=== PATIENT | male | born 1990 | race Caucasian/White ===

== ENCOUNTER 2025-05-04 12:11 | Emergency (ER) | payer BC, SELFPAY ==
--- NOTE | 2025-05-04 12:26 | ED_ITS ---
HPI - URI/Sore Throat General Chief Complaint: Upper Respiratory Infection Stated Complaint: Poss Sinus Problem Time Seen by Provider: 05/04/25 12:30 Source: patient Mode of arrival: ambulatory Limitations: no limitations History of Present Illness HPI Narrative: Thaddeus is a 34-year-old male patient presenting to the clinic today with complaints of possible sinus infection. He reports he has been dealing with sinus pressure and headaches for the past 2 weeks. Has been having some green nasal drainage but that has somewhat cleared up. Denies any known fevers, chills, body aches. States he has pressure over the right frontal sinus and behind his right eye. Pain is worse with bending forward or changing positions. Denies any dizziness, chest pain, shortness of breath. Has been using steam showers to help alleviate his symptoms. Has not been taking any medications. Related Data Allergies Allergy/AdvReac Type Severity Reaction Status Date / Time No Known Allergies Allergy Verified 05/04/25 12:22 Review of Systems Review of Systems: Pertinent positives per HPI. Patient denies any fever, chills, rash, visual changes, dizziness, cough, shortness of breath, chest pain, palpitations, nausea, vomiting, diarrhea, constipation, abdominal pain, or any urinary issues. PMFSH Comments At the time of my signature, I reviewed and agree with the nursing past medical, surgical, social, and family history. There is no relevant family history pertinent to the patient complaint. Exam Narrative: General: Well-developed, well nourished, in no apparent distress Head: Normocephalic, atraumatic Eyes: Pupils equally round and reactive to light bilaterally, EOM intact, sclera and conjunctive clear, no discharge, lids normal Ears: TMs intact and congested, ear canals clear, no drainage, grossly hearing normal. Nose: Nares patent, green nasal discharge, monitor inflammation, right-sided maxillary and frontal sinus tenderness. Mouth: Oral pharynx red without lesions or masses, good dentition, MMM. Postnasal drip Neck: Supple, trachea midline, no enlargement of anterior or posterior cervical nodes, no thyroid masses or goiter palpable. Cardio: Regular rate and rhythm, s1 and s2 normal, no murmur appreciated. Resp: Clear to auscultation bilaterally, no rhonchi, rales, wheezing or rubs Course Course Level of Care: Express Care Visit Vital Signs Vital signs: Vital Signs Temperature 36.9 C 05/04/25 12:27 Pulse Rate 67 05/04/25 12:27 Respiratory Rate 16 05/04/25 12:27 Blood Pressure 135/91 H 05/04/25 12:27 Pulse Oximetry 100 05/04/25 12:27 Oxygen Delivery Room Air 05/04/25 12:27 Temperature 36.9 C 05/04/25 12:27 Pulse Rate 67 05/04/25 12:27 Respiratory Rate 16 05/04/25 12:27 Blood Pressure 135/91 H 05/04/25 12:27 Pulse Oximetry 100 05/04/25 12:27 Oxygen Delivery Room Air 05/04/25 12:27 MDM MDM Narrative Medical decision making narrative: At the time of visit patient is resting comfortably on the exam table. Patient appears to be nontoxic. Complaints of possible sinus infection. He reports he has been dealing with sinus pressure and headaches for the past 2 weeks. Has been having some green nasal drainage but that has somewhat cleared up. Denies any known fevers, chills, body aches. States he has pressure over the right frontal sinus and behind his right eye. Pain is worse with bending forward or changing positions. Denies any dizziness, chest pain, shortness of breath. Has been using steam showers to help alleviate his symptoms. Has not been taking any medications. On exam patient has well TMs intact and congested, green nasal drainage, moderate anterior turbinate inflammation, maxillary and frontal sinus pressure on the right side, oropharynx mildly red with postnasal drip, heart rates regular rate and rhythm, lung sounds are clear. Plan: I suspect patient has sinusitis. Prescription for Augmentin and prednisone was sent to the pharmacy. Supportive measures were discussed with the patient and they voiced understanding discharge instructions and agrees to treatment plan. Return precautions reviewed Differential Diagnosis Differential Diagnosis: Differential diagnostic considerations for upper respiratory infection include upper respiratory infection, croup, otitis media, sinusitis, viral infection, bronchitis, influenza, pharyngitis, strep, uvulitis. Discharge Plan Discharge Clinical Impression: Sinusitis Qualifiers: Sinusitis location: frontal Chronicity: acute Recurrence: non-recurrent Qualified Code(s): J01.10 - Acute frontal sinusitis, unspecified Patient Disposition: Home Condition: Stable Instructions: Antibiotic Form, Sinusitis (ED) Additional Instructions: Take prescription medications only as prescribed-prednisone and Augmentin Increase fluids and stay well hydrated May take Tylenol or motrin as directed on bottle for pain/fever May use Flonase 1 spray in each nare daily May take OTC antihistamines such as Zyrtec or Claritin daily as directed on bottle May apply Vicks vapor rub to chest to open sinuses Sinus rinses for congestion Cepacol spray, cough drops, throat lozenges, warm tea with honey/lemon, gargle salt water to soothe throat BRAT diet for diarrhea Clear liquids x 24 hours then advance as tolerated for nausea/vomiting Go to the ED if you develop a worsening in your condition- high fever not controlled by Tylenol or Motrin, dehydration, weakness, lethargy, shortness of breath, or chest pain. Follow up with your PCP in 3-5 days if symptoms persist. Patient Language: Greenlandic Prescriptions: New prednisone 20 mg tablet 40 mg PO DAILY 5 Days Qty: 10 0RF amoxicillin-pot clavulanate 875-125 mg tablet 1 tablet PO Q12H 7 Days Qty: 14 0RF Follow-up/Referrals: UNKNOWN,DOCTOR [Primary Care Provider] Time of Disposition: 12:27 Quality NIHSS Nursing Documentation ED NIHSS nursing documentation: reviewed/agree
[2025-05-04 12:27] VITALS: BP 135/91; PULSE 67; RESP 16; TEMP 36.9; O2SAT 100
--- OUTSIDE RECORDS SUMMARY | 2025-05-04 13:47 | XMS_ITS | Clinical Summary ---
Author Organization [facility] Address [address] [place] [address] Care Team Providers Care Chemical Mixer Name Role Phone John Dan MD Primary Care Provider [phone] Allergies No known active allergies Medications ibuprofen (ADVIL,MOTRIN) 400 mg tablet Take 1 tablet (400 mg total) by mouth every 6 (six) hours as needed for pain. 0 02/21/2018 Active fexofenadine HCl (ELMA ORAL) Take by mouth Active Active Problems Problem Noted Date Diagnosed Date Class 1 obesity due to exces s calories without serious comorbidity with body mass index (BMI) of 30.0 to 30.9 in adult 01/24/2021 Assessment & Plan (01/24/2021 2:22 PM CDT): Stable, well controlled; patient has been working on weight loss through exercise and making dietary changes Has recently changed his diet to months ago Continue to monitor weight and encourage regular activity and exercise Closed fracture of left ankle with routine heali ng 02/21/2018 Elevated blood pressure reading 02/21/2018 Non-seasonal allergic rhinitis 02/21/2018 Tobacco abuse 10/06/2017 Assessment & Plan (01/24/2021 2:22 PM CDT): Has transition from tobacco to using nicotine gum for cravings Encouraged patient to work towards complete cessation of use of nicotine Migraine without aura and wi thout status migrainosus, not intractable 10/06/2017 Assessment & Plan (01/24/2021 2:21 PM CDT): Migraine versus cluster headaches Well controlled with magnesium supplement; patient continue using magnesium; cluster headaches return, will discuss other medical therapies at that time Deviated nasal septum 07/19/2015 Overview (08/18/2016): Deviated septum Resolved Problems Problem Noted Date Diagnosed Date Resolved Date Annual physical exam 10/06/2017 019 Overview (10/06/2017): Continue medication, exercise and diet Immunizations Immunization Administration Dates Next Due Influenza, Quadrivalent, Spl it, Preservative Free, Intramuscular 02/12/2016,02/11/2015,01/21/2014 Influenza, Trivalent, Preser vative Free, Intramuscular 03/17/2013 Influenza, Unspecified 05/14/2020(Deferr ed: Patient Refused),05/14/2019(Deferred: Patient Refused),02/28/2018 Tdap 12/10/2020 Surgical History Surgery Date Site/Laterality Comments OTHER SURGICAL HISTORY Lazy Eye: surgery OTHER SURGICAL HISTORY 10/23/2017 Internal tib/fib fixation NASAL SEPTUM SURGERY 05/14/2015 - 05/13/2016 Medical History Medical History Date Comments Hx Other Medical 2001 Lazy Eye Migraines 2016 with different s easons Family History Medical History Relation Name Comments Hypertension Brother Calcification in one of his arteries Father Gastroesophageal Reflux Disease Father GERD; Kidney cancer Maternal Grandfather Anxiety disorder Mother Arthritis Mother Depression Mother Heart disease Mother Hypertension Mother Hypertension; Thyroid disease Mother Diabetes Other Kidney disease Other Heart attack Paternal Grandfather Relation Name Status Comments Brother Alive Father Alive Maternal Grandfather Mother Alive Other Paternal Grandfather Social History Tobacco Use Types Packs/Day Years Used Date Smoking Tobacco: Former Cigarettes Q uit: 2020 Smokeless Tobacco: Never Comments:Smoking History Pac ks/day: 10 Packs Alcohol Use Standard Drinks/Week Comments No 0 (1 standard drink = 0.6 oz pur e alcohol) AUDIT-C Answer Date Recorded Q1: How often do you have a drink containing alc ohol? Never 12/10/2020 Average Number of Drinks Not on file 021 Q3: How often do you have si x or more drinks on one occasion? 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 Gender Identity Male 12/10/2020 11:48 AM CDT Sexual Orientation Straight 12/10/2020 11 :48 AM CDT Last Filed Vital Signs Vital Sign Reading Time Taken Comments Blood Pressure 136/76 12/21/2020 1:18 PM CDT Pulse 93 12/21/2020 1:15 PM CDT Temperature 36.8 C (98.2 F) 12/28/2020 9:52 AM CDT Respiratory Rate 20 12/21/2020 1:15 PM CDT Oxygen Saturation 96% 12/21/2020 1:15 PM CDT Inhaled Oxygen Concentration - - Weight 106.1 kg (234 lb) 12/21/2020 1:15 PM CDT Height 188 cm (6' 2) 12/21/2020 1:15 PM CDT Body Mass Index 30.04 12/21/2020 1:15 PM CDT Plan of Treatment Not on file Care Teams Chemical Mixer Relationship Specialty Start Date End Date [place] [id number] PCP - General Family Medicine 12/10/20
== END 2025-05-04 12:35 | disposition home or self-care (01) ==
PROVIDERS: Emergency Provider Nurse Practitioner Family
DX: J01.10 Acute frontal sinusitis, unspecified (principal)
CPT/HCPCS: 99203; G0463